=== PATIENT | male | born 1970 | race Caucasian/White ===

== ENCOUNTER 2019-05-28 09:45 | Emergency (ER) | payer OTHER ==
[2019-05-28 10:34] LABS: ABS Eosinophils 0.1 10^3/ul (0-0.6); ABS Lymphocytes 1.7 10^3/ul (1.0-4.8); ABS Monocytes 0.6 10^3/ul (0-0.8); ABS Neutrophils 4.5 10^3/ul (1.5-7.7); Eosinophil % 1.2 %; Hematocrit 48 % (42-52); Hemoglobin 16.1 g/dL (14.0-18.0); Lymphocyte % 23.9 %; Mean Corpuscular HGB Conc 34 g/dL (31-36); Mean Corpuscular Hemoglobin 29 pg (27-31); Mean Corpuscular Volume 87 fL (80-94); Mean Platelet Volume 7.7 fL (7.4-10.4); Nucleated Red Blood Cells % 0.1; Platelet Count 244 10^3/uL (150-450); Red Blood Count 5.49 10^6 /uL (4.18-5.48); Red Cell Distribution Width 14 % (10-15); White Blood Count 6.9 10^3/uL (3.5-10.8)
[2019-05-28 10:47] LABS: Albumin 4.5 g/dL (3.2-5.2); Albumin/Globulin Ratio 1.4 (1-3); Calcium 9.8 mg/dL (8.6-10.3); EGFR African American 97.3 (>60); EGFR Non-African American 80.4 (>60); Globulin 3.2 g/dL (2-4); Potassium 4.5 mmol/L (3.5-5.0); Total Bilirubin 1.4 mg/dL (0.2-1.0); Total Protein 7.7 g/dL (6.4-8.9)
--- NOTE | 2019-05-28 11:33 | ED ---
HPI Chest Pain - HPI Summary HPI Summary: This patient is a 48 year old male presenting to [facility] with a chief complaint of bilateral arm pain radiating to his chest. He states one week ago the pain started on the left side around the elbow area, and since then started in the other arm in the same area and then spread up to his chest on both sides. He also notes tension in his neck. He thought his symptoms were due to how he was sleeping. He states it is typically worse in the morning and gets better in the afternoon. He rates the pain 3/10 in severity.The patient has no pertinent PMHx. Medications reviewed, allergies noted. - History of Current Complaint Chief Complaint: EDChestWallPain Time Seen by Provider: 05/28/19 11:26 Hx Obtained From: Patient Onset/Duration: Started Weeks Ago Pain Intensity: 3 Pain Scale Used: 0-10 Numeric - Allergy/Home Medications Allergies/Adverse Reactions: Allergies Allergy/AdvReac Type Severity Reaction Status Date / Time No Known Allergies Allergy Verified 05/28/19 09:55 Home Medications: Home Medications NK [No Home Medications Reported] 05/28/19 [History Confirmed 05/28/19] PMH/Surg Hx/FS Hx/Imm Hx Endocrine/Hematology History: Denies: Hx Diabetes, Hx Thyroid Disease Cardiovascular History: Denies: Hx Hypertension Respiratory History: Denies: Hx Asthma, Hx Chronic Obstructive Pulmonary Disease (COPD) GI History: Denies: Hx Ulcer - Surgical History Surgery Procedure, Year, and Place: wisdom teeth extraction Infectious Disease History: No Infectious Disease History: Denies: Hx Hepatitis, Hx Human Immunodeficiency Virus (HIV), Traveled Outside the [place] in Last 30 Days - Family History Known Family History: Negative: Respiratory Disease - Social History Alcohol Use: Occasionally Substance Use Type: Reports: None Smoking Status (MU): Never Smoked Tobacco Review of Systems Positive: Chest Pain Positive: Other - Bilateral arm and neck pain All Other Systems Reviewed And Are Negative: Yes Physical Exam - Summary Physical Exam Summary: Constitutional: Well-developed, Well-nourished, Alert. (-) Distressed Skin: Warm, Dry HENT: Normocephalic; Atraumatic Eyes: Conjunctiva normal Neck: Musculoskeletal ROM normal neck. (-) JVD, (-) Stridor, (-) Tracheal deviation Cardio: Rhythm regular, rate normal, Heart sounds normal; Intact distal pulses; Radial pulses are 2+ and symmetric. (-) Murmur Pulmonary/Chest wall: Effort normal. (-) Respiratory distress, (-) Wheezes, (-) Rales Abd: Soft, (-) tenderness, (-) Distension, (-) Guarding, (-) Rebound Musculoskeletal: (-) Edema; Good pulses bilaterally in radius, No calf tenderness, No venous cords, No pain with dorsiflexion of foot Lymph: (-) Cervical adenopathy Neuro: Alert, Oriented x3 Psych: Mood and affect Normal Triage Information Reviewed: Yes Vital Signs On Initial Exam: Initial Vitals Temp Pulse Resp BP Pulse Ox 98.3 F 54 16 160/83 99 05/28/19 09:52 05/28/19 09:52 05/28/19 09:52 05/28/19 09:52 05/28/19 09:52 Vital Signs Reviewed: Yes Procedures - Sedation Patient Received Moderate/Deep Sedation with Procedure: No Diagnostics - Vital Signs Vital Signs Temp Pulse Resp BP Pulse Ox 05/28/19 09:52 98.3 F 54 16 160/83 99 - Laboratory Lab Results: Lab Results 05/28/19 05/28/19 Range/Units 10:13 10:13 WBC 6.9 (3.5-10.8) 10^3/uL RBC 5.49 H (4.18-5.48) 10^6 /uL Hgb 16.1 (14.0-18.0) g/dL Hct 48 (42-52) % MCV 87 (80-94) fL MCH 29 (27-31) pg MCHC 34 (31-36) g/dL RDW 14 (10-15) % Plt Count 244 (150-450) 10^3/uL MPV 7.7 (7.4-10.4) fL Neut % (Auto) 65.4 % Lymph % (Auto) 23.9 % Marion % (Auto) 9.1 % Eos % (Auto) 1.2 % Baso % (Auto) 0.4 % Absolute Neuts (auto) 4.5 (1.5-7.7) 10^3/ul Absolute Lymphs (auto) 1.7 (1.0-4.8) 10^3/ul Absolute Monos (auto) 0.6 (0-0.8) 10^3/ul Absolute Eos (auto) 0.1 (0-0.6) 10^3/ul Absolute Basos (auto) 0.0 (0-0.2) 10^3/ul Absolute Nucleated RBC 0.0 10^3/ul Nucleated RBC % 0.1 Sodium 138 (135-145) mmol/L Potassium 4.5 (3.5-5.0) mmol/L Chloride 103 (101-111) mmol/L Carbon Dioxide 30 (22-32) mmol/L Anion Gap 5 (2-11) mmol/L BUN 21 (6-24) mg/dL Creatinine 1.00 (0.67-1.17) mg/dL Est GFR ( Amer) 97.3 (>60) Est GFR (Non-Af Amer) 80.4 (>60) BUN/Creatinine Ratio 21.0 H (8-20) Glucose 103 H (70-100) mg/dL Calcium 9.8 (8.6-10.3) mg/dL Total Bilirubin 1.40 H (0.2-1.0) mg/dL AST 17 (13-39) U/L ALT 15 (7-52) U/L Alkaline Phosphatase 57 (34-104) U/L Troponin I 0.00 (<0.03) ng/mL Total Protein 7.7 (6.4-8.9) g/dL Albumin 4.5 (3.2-5.2) g/dL Globulin 3.2 (2-4) g/dL Albumin/Globulin Ratio 1.4 (1-3) Result Diagrams: 05/28/19 10:13 05/28/19 10:13 Lab Statement: Any lab studies that have been ordered have been reviewed, and results considered in the medical decision making process. - Radiology CXR Radiology Interpretation Completed By: Radiologist Summary of Radiographic Findings: No active cardiopulmonary disease is noted. ED Provider has reviewed this report. - EKG 0948 Cardiac Rate: Bradycardia EKG Rhythm: Sinus Bradycardia Summary of EKG Findings: No STEMI. ED Physician has reviewed and interpreted this EKG. Chest Pain Course/Dx - Course Course Of Treatment: Patient is here with a week of bilateral arm pain that radiates into his chest. Patient's symptoms occur after he wakes up. Patient thinks he was sleeping on his arms wrong. Patient has no risk factors for ACS this story is not consistent with a cardiac origin. Patient had a negative troponin and EKG for any ischemic changes. Patient's story is not consistent with PE, he has a well score of 0 and is perc negative. However, since his story is atypical a d-dimer was sent which was also negative. Patient had negative chest x-ray. Patient is discharged with a trial of Motrin follow-up with his PCP - Diagnoses Provider Diagnoses: Arm pain, Chest pain Discharge ED - Sign-Out/Discharge Documenting (check all that apply): Patient Departure - Discharge - Discharge Plan Condition: Stable Disposition: HOME Patient Education Materials: Chest Pain (ED), Arm Pain (ED) Referrals: Mario Bass MD [Primary Care Provider] - Additional Instructions: Take Motrin 600 mg every 6 hours for pain for the next couple of days. Come back with severe chest pain, trouble breathing, or any other concerning symptoms. Follow up with your primary care doctor in 1-3 days. - Billing Disposition and Condition Condition: STABLE Disposition: Home - Attestation Statements Document Initiated by Jonathan: Yes Documenting Delisaibe: Dontae Bishop Provider For Whom Jonathan is Documenting (Include Credential): José Miguel Pacheco MD Scribe Attestation: Dontae Sanchez, scribed for José Miguel Pacheco MD on 05/28/19 at 1557. Scribe Documentation Reviewed: Yes Provider Attestation: The documentation as recorded by the Dontae diaz accurately reflects the service I personally performed and the decisions made by me, José Miguel Pacheco MD Status of Scribe Document: Viewed
[2019-05-28 13:50] VITALS: BP 121/77
== END 2019-05-28 13:50 | disposition home or self-care (01) ==
LOC: ED 09:45
DX: M79.601 Pain in right arm (principal); M79.602 Pain in left arm; R07.9 Chest pain, unspecified
CPT/HCPCS: 36415; 71046; 80053; 84484; 85025; 85379; 93005; 99283